=== PATIENT | female | born 1975 | race Caucasian/White ===

== ENCOUNTER 2025-07-12 11:31 | Emergency (ER) | payer SELFPAY ==
[2025-07-12 11:32] VITALS: BP 136/100; PULSE 107; RESP 16; TEMP 35.9; O2SAT 100
[2025-07-12 11:33] VITALS: BMI 36.8
--- NOTE | 2025-07-12 12:10 | RAD_ITS ---
PROCEDURE: ANKLE MIN 3 VIEWS 07/12/2025 REASON FOR EXAM: FALL TECHNIQUE: Procedure Code: RADANK Modality: DX Procedure: ANKLE MIN 3 VIEWS Laterality: Left COMPARISON: No FINDINGS: Bones: There is questionable avulsion injury noted at the medial malleolus. Joints: Normal alignment. Mortise appears intact. No effusion. Soft tissues: Soft tissue swelling is noted, worst at the medial malleolus. RAD/Ankle min 3 Views IMPRESSION: Questionable avulsion injury is noted at the medial malleolus. Reading Location: [facility]
--- NOTE | 2025-07-12 12:10 | RAD_ITS ---
PROCEDURE: FOOT MIN 3 VIEWS 07/12/2025 REASON FOR EXAM: FALL TECHNIQUE: Procedure Code: RADFO Modality: DX Procedure: FOOT MIN 3 VIEWS Laterality: Left COMPARISON: None FINDINGS: Bones: No visible fracture. No suspicious bone lesion. Joints: Normal alignment. Soft tissues: Soft tissues are unremarkable. RAD/Foot min 3 Views IMPRESSION: No acute fracture. Reading Location: [facility]
--- NOTE | 2025-07-12 12:11 | EDS_ITS ---
HPI History of Present Illness Chief Complaint: Lower Extremity Injury Narrative Narrative: Patient is a 50-year-old female with no medical history who presents to the emergency department the chief complaint of foot and ankle pain on the left side. She states that she was going down a set of stairs missed the last step twisting her ankle. States that she has significant pain and has not take anything for pain at home coming here to be further evaluated. She states that she did not hit her head she not pass out she denies any blood thinner medications. Patient denies pain anywhere else on her body. PFSH PFSH Medical History no medical history Allergy/AdvReac Type Severity Reaction Status Date / Time No Known Allergies Allergy Verified 07/12/25 11:32 Surgical History no surgical history Social History Smoking Status: Never smoker ROS ROS ED ROS Narrative Neurological: Denies any numbness or tingling Musculoskeletal: Complains of left foot and ankle pain as noted above Skin: Denies any rashes or lesions EXAM Physical Exam Narrative Exam Narrative: General: Patient is lying in bed resting comfortably did not appear to be in acute distress Head: Atraumatic, normocephalic Eyes: PERRL bilaterally, EOMI bilaterally, no conjunctival injection noted Neck: Soft, supple, trachea midline Cardiovascular: Patient tachycardic Musculoskeletal: Patient has tenderness to palpation over the left ankle and left foot all other bony prominences palpated joints taken through full range of motion no pain elicited Extremities: DP pulses +2/4 in the left lower extremity, +5/5 strength noted in the bilateral upper and the right lower extremity, strength limited in the left lower extremity secondary to pain Neurological: Patient following commands that she was at [facility] year is 2024 sensation grossly intact Skin: Warm, dry, intact no rashes or lesions noted Const Vital Signs: 07/12/25 11:32 Temperature 96.7 F L Temperature Source Temporal Pulse Rate 107 H Respiratory Rate 16 Blood Pressure 136/100 H Blood Pressure Mean 112 Pulse Ox 100 Oxygen Delivery Method Room Air MDM MDM MDM Narrative Medical decision making narrative: Patient is a 50-year-old female who presented to the emergency department the chief complaint left foot and ankle pain after missing a the last step. On the differential diagnosis includes but limited to ankle sprain, medial mall's fracture, lateral malleolus fracture. Once workup is obtained and reviewed she will be reevaluated. Patient be given [place] and Zofran. Patient's x-ray reviewed by myself and by radiology of the foot and ankle which showed no acute fracture or dislocation of her foot. Patient's ankle x-ray showed questionable avulsion injury noted to the medial malleolus. I discussed the case with on-call orthopedic surgeon Dr. Short who recommends placing the patient in a walking boot and following up in the outpatient setting. Patient was offered crutches which she states that she already has. She was advised to rotate Tylenol and ibuprofen [id number] for pain control. She is encouraged to return with worsening symptoms or other concerns. All question concerns answered she was discharged home in stable condition Radiography Diagnostic Testing: Clinical Impression(s) from Imaging Studies Ankle X-Ray 07/12/25 12:10 IMPRESSION: Questionable avulsion injury is noted at the medial malleolus. Reading Location: [facility] Foot X-Ray 07/12/25 12:10 IMPRESSION: No acute fracture. Reading Location: [facility] Discharge Plan Triage Chief Complaint: Lower Extremity Injury ED Provider: Guillermo Natarajan Dx/Rx/DC Orders Clinical Impression: Fall, Ankle sprain Primary Care Provider: Julia Steele Referrals: Asif Short DO [Med Staff - Active Staff, [facility]] Julia Steele, PA-C [Primary Care Provider, Medical] Activity Restrictions/Additional Instructions: Follow-up with the orthopedic surgeon you were referred to. Return with worsening symptoms or any other concerns. Rotate Tylenol and ibuprofen [id number] when you do this you can take something every 3 hours for pain max dose of Tylenol and 24 hours 4000 mg max dose of ibuprofen in 24 hours 3200 mg. Ice, elevate. Ambulate as tolerated. Print Language: Macedonian Disposition Disposition: Home, Self Care
[2025-07-12] MEDS: HYDROcodone Bitartrate/Apap 5/325 Tablet PO (12:14)
--- OUTSIDE RECORDS SUMMARY | 2025-07-12 13:21 | XMS RPT_ITS | CCD ---
Author Organization [facility] Care Team Providers Care Toy Department Manager Name Role Phone OMAIRA, DR FEDE Mathews Attending Unavaila ble OMAIRA, DR FEDE Mathews Primary Care Unavaila ble OMAIRA, DR FEDE Mathews Admitting Unavaila ble INDU CUENCA MD Consulting Unavailable PROVIDER, UNKNOWN Consulting Unavailable PROVIDER, UNKNOWN Consulting Unavailable AMADO HEARD MD Primary Care Unavailable AMADO HEARD MD Admitting Unavailable INDU CUENCA MD Consulting Unavailable AMADO HEARD MD Attending Unavailable PROVIDER, UNKNOWN Consulting Unavailable PROVIDER, UNKNOWN Consulting Unavailable Results Test Name Value Interpretation Reference Range Facility EMERGENCY REPORTon 1 EMERGENCY REPORT [facility] EMERGENCY ROOM REPORT NAME ACCOUNT SEX AGE ADMIT DISCHARGE PT MED. RECORD# NUMBER DATE DATE TYPE ALAN MCKINNON [id number] F [id number] 03/13/21 03/15/21 1 A [id number] ROOM: [facility] DATE OF : 1975 DICTATING PHYSICIAN: Bong Wang CHIEF COMPLAINT/HISTORY OF PRESENT ILLNESS: This is a young lady who came to the emergency room with shortness of breath. She lives at home in a reasonable good house. She was recently diagnosed as COVID. She states she has had fevers and she has been coughing and she feels like she is short of breath when she walks around. She came here by private vehicle. She says that she gets dizzy when she feels short of breath. She decided to come to the emergency room for evaluation. She was on Zithromax after being previously diagnosed. She is not a smoker. She comes from home. She states she is not a diabetic. No history of cardiac disease. In general, she enjoys good health. She is not on oxygen. She does not have a history of asthma or chronic lung disorders. She states she has not had any chest pain that is midsternal with radiation to her arms or back. She has not had any vomiting or diarrhea, abdominal pain. She states sometimes she will feel nauseated. Sometimes she will have loose stool, but no urinary complaints and she is seen in room number 6. PHYSICAL EXAMINATION: VITAL SIGNS: She has 98.2 temperature, 119 pulse, 22 respirations, 134/83 blood pressure. She is saturating 85% saturated. On oxygen her saturation is improved to 92 to 93. Her lungs did not have end-expiratory wheezing but on inspiration she had rhonchitic sounds bilaterally prompting a CT. She denied any history of blood clots. She had no retractions. Heart rate and rhythm are regular. PMI is left chest. Good radial and dorsalis pedis pulses. There are no peripheral edema. Abdomen is soft. She was overweight, no offence, nontender. She did not have prolonged expiratory phase. DIAGNOSTIC DATA: A 6.2 white count, 14 and 42 H&H. Her D-dimer was slightly elevated at 262. Potassium slightly low at 3.2. Calcium was slightly low at 8.1. Glucose slightly elevated at 155. CRP was somewhat elevated at 520. EMERGENCY DEPARTMENT COURSE AND TREATMENT: With oxygen and with medications provided in the emergency room, that is fluids and steroids, and reassurance, she felt improved. Her saturations still remained on the low side when the oxygen was removed so she was kept on 4 L of oxygen here and labs were obtained. The lab results were not so bad. All these things are being done and she is feeling some better. She is talking easier. She was given ceftriaxone, dexamethasone, here in the emergency room and she also had the CTA chest. She had fluids. Her CTA of her chest demonstrated no pulmonary embolism, but compared to a CT she had on the 06 of March, she had bilateral multiple infiltrates and new dependent consolidations. Page 1 of 2 ALAN MCKINNON Emergency Room Report ALAN MCKINNON : 1975 DIAGNOSIS/PLAN/DISPO SITION: She has COVID pneumonia hence further she was admitted to Dr. Montano's service. Dictated By: Bong Wang DO 03/15/21 21:02 JOB #: [id number] Transcribed By: laura 03/16/21 14:51 Electronically signed by: E-SIGN BONG WANG DO 03/22/21 18:58 Page 2 of 2 PRATIBHA ALAN A Emergency Room Report Normal [facility] Culture, Blood (WB)on 2020 CUB No growth in 5 days. Normal [facility] Comment on above: Performed By: #### M 200.1000 #### [facility] [address] [place], [address] APTT - DAILYon 03-15-2021 aPTT Coag (Bld) [Time] 30.3 s Normal 25.4 - 38.4 [facility] Comment on above: Performed By: #### 2 00602 #### [facility],[address] [place] [address] 02174 C-REACTIVE PROTEIN - DAILYon 03-15-2021 CRP 2.00 mg/dl High 0.00 - 0.90 [facility] Comment on above: Performed By: #### 2 02192 #### [facility],[address] [place] [address] 44207 CBC DAILYon 03-15-2021 Baso # 0.00 x10EE3/UL Normal 0.00 - 0.10 [facility] Comment on above: Performed By: #### 2 67993 #### [facility],[address] [place] [address] 78106 Basophils/100 WBC (Bld) 0.0 % Normal 0.0 - 2.0 [facility] Comment on above: Performed By: #### 2 13649 #### [facility],[address] [place] [address] 13206 EO # 0.00 x10EE3/UL Normal 0.00 - 0.50 [facility] Comment on above: Performed By: #### 2 41438 #### [facility],[address] [place] [address] 56769 Eosinophils/100 WBC (Bld) 0.0 % Normal 0.0 - 7.0 [facility] Comment on above: Performed By: #### 2 40256 #### [facility],[address] [place] [address] 33543 Erythrocyte distribution width (RBC) [Ratio] 13.7 % Normal 12.0 - 15.6 [facility] Comment on above: Performed By: #### 2 50437 #### [facility],[address] [place], [place] [id number] Hematocrit (Bld) [Volume fraction] 38.8 % Normal 34.0 - 46.0 [facility] Comment on above: Performed By: #### 2 03803 #### [facility],[address] [place] [address] Hemoglobin (Bld) [Mass/Vol] 12.5 g/dL Normal 12.0 - 16.0 [facility] Comment on above: Performed By: #### 2 32015 #### [facility],[address] [place] [address] Lymph # 1.70 x10EE3/UL Normal 0.80 - 2.80 [facility] Comment on above: Performed By: #### 2 40675 #### [facility],[address] [place], [place] [id number] Lymphocytes/100 WBC (Bld) 14.6 % Low 20.0 - 45.0 [facility] Comment on above: Performed By: #### 2 14951 #### [facility],[address] [place], [place] [id number] MANUAL DIFF N/A Normal [facility] Comment on above: Performed By: #### 2 47794 #### [facility],[address] [place] [address] 41463 MCH (RBC) [Entitic mass] 29 pg Normal 27 - 33 [facility] Comment on above: Performed By: #### 2 87464 #### [facility],[address] [place] [address] 85792 MCHC 32 X10 3 Normal 32 - 36 [facility] Comment on above: Performed By: #### 2 80589 #### [facility],[address] [place] [address] 20816 MCV (RBC) [Entitic vol] 90 fL Normal 80 - 99 [facility] Comment on above: Performed By: #### 2 30856 #### [facility],[address] [place] [address] 45686 [place] # 0.70 x10EE3/UL Normal 0.20 - 1.00 [facility] Comment on above: Performed By: #### 2 99116 #### [facility],[address] [place] [address] 14783 MONOS % 6.5 % Normal 0.0 - 10.0 [facility] Comment on above: Performed By: #### 2 44776 #### [facility],[address] [place] [address] 75942 Morphology Franky (Bld) [Interp] N/A Normal [facility] Comment on above: Result Comment: {CD] Performed By: #### 2 43792 #### [facility],[address] [place] [address] 71874 Neut # 9.00 x10EE3/UL High 1.50 - 7.10 [facility] Comment on above: Performed By: #### 2 12206 #### [facility],[address] [place] [address] 29482 Neutrophils/100 WBC (Bld) 78.9 % High 46.0 - 76.0 [facility] Comment on above: Performed By: #### 2 27309 #### [facility],[address] [place] [address] 36883 PLATELET 193 x10EE3/UL Normal 150 - 450 [facility] Comment on above: Performed By: #### 2 15640 #### [facility],[address] [place] [address] 96168 Platelet mean volume (Bld) [Entitic vol] 10.2 fL Normal 6.6 - 10.5 [facility] Comment on above: Result Comment: AUTO MATED DIFFERENTIAL Performed By: #### 2 48806 #### [facility],[address] [place] [address] 82652 RBC 4.33 x 10EE6/UL Normal 4.10 - 5.30 [facility] Comment on above: Performed By: #### 2 70786 #### [facility],[address] [place] [address] 89322 WBC 11.5 x 10EE3/UL High 4.5 - 10.8 [facility] Comment on above: Performed By: #### 2 61063 #### [facility],[address] [place] [address] 00850 CMP with eGFR - DAILYon 02-15 AGE 45 years Normal [facility] Comment on above: Performed By: #### 2 87697 #### [facility],[address] [place] [address] 58676 Albumin [Mass/Vol] 2.9 g/dL Low 3.4 - 5.0 [facility] Comment on above: Performed By: #### 2 87697 #### [facility],[address] [place] [address] 28204 Albumin/Globulin [Mass ratio] 0.8 {ratio} Low 0.9 - 1.6 [facility] Comment on above: Performed By: #### 2 45568 #### [facility],[address] [place] [address] 42591 ALK PHOS 51 U/L Normal 46 - 116 [facility] Comment on above: Performed By: #### 2 69534 #### [facility],[address] [place] [address] 30328 ALT [Catalytic activity/Vol] 14 U/L Normal 14 - 59 [facility] Comment on above: Performed By: #### 2 34145 #### [facility],[address] [place] [address] Anion gap [Moles/Vol] 15 mmol/L Normal 10 - 20 [facility] Comment on above: Performed By: #### 2 36652 #### [facility],[address] [place] [address] AST [Catalytic activity/Vol] 14 U/L Normal 13 - 39 [facility] Comment on above: Performed By: #### 2 69927 #### [facility],[address] [place] [address] B/C RATIO 19 ratio Normal 0 - 30 [facility] Comment on above: Performed By: #### 2 02490 #### [facility],[address] [place] [address] Bilirubin [Mass/Vol] 0.3 mg/dL Normal 0.2 - 1.0 [facility] Comment on above: Performed By: #### 2 78044 #### [facility],[address] [place] [address] Calcium [Mass/Vol] 8.3 mg/dL Low 8.5 - 10.1 [facility] Comment on above: Performed By: #### 2 36971 #### [facility],[address] [place] [address] Chloride [Moles/Vol] 108 mmol/L High 98 - 107 [facility] Comment on above: Performed By: #### 2 35185 #### [facility],[address] [place] [address] CMP with eGFR - DAILY Normal [facility] Comment on above: Result Comment: COMP REHENSIVE METABOLIC PANEL Performed By: #### 2 04136 #### [facility],[address] [place], [place] [id number] CO2 [Moles/Vol] 23.6 mmol/L Normal 21.0 - 32.0 [facility] Comment on above: Performed By: #### 2 40167 #### [facility],[address] [place], [place] [id number] Creatinine [Mass/Vol] 0.58 mg/dL Normal 0.55 - 1.02 [facility] Comment on above: Performed By: #### 2 47250 #### [facility],[address] [place], [place] [id number] GFR/1.73 sq M.predicted among non-blacks MDRD (S/P/Bld) [Vol rate/Area] mL/min/{1.73_m2} Normal 60 - 999 [facility] Comment on above: Performed By: #### 2 79125 #### [facility],[address] [place] [address] Result Comment: ACCO RDING TO THE NATIONAL KIDNEY DISEASE EDUCATION PROGRAM(NKDE), A NORMAL eGFR IS A VALUE GREATER THAN OR EQUAL TO 60 ML/MIN/1.73 SQ METERS. CHRONIC KIDNEY DISEASE: <60mL/MIN/1.73 SQ METERS KIDNEY FAILURE: <15mL/MIN/1.73 SQ METERS Globulin (S) [Mass/Vol] 3.8 g/dL Normal 1.5 - 3.8 [facility] Comment on above: Performed By: #### 2 59158 #### [facility],[address] [place] [address] Glucose [Mass/Vol] 133 mg/dL High 74 - 106 [facility] Comment on above: Performed By: #### 2 73332 #### [facility],[address] [place] [address] 36118 Potassium [Moles/Vol] 3.7 mmol/L Normal 3.5 - 5.1 [facility] Comment on above: Performed By: #### 2 74208 #### [facility],[address] [place] [address] 63867 Protein [Mass/Vol] 6.7 g/dL Normal 6.4 - 8.2 [facility] Comment on above: Performed By: #### 2 50314 #### [place] [id number] Sodium [Moles/Vol] 143 mmol/L Normal 136 - 145 [facility] Comment on above: Performed By: #### 2 17255 #### [facility],[address] [place] [address] 06144 Urea nitrogen [Mass/Vol] 11 mg/dL Normal 7 - 18 [facility] Comment on above: Performed By: #### 2 92267 #### [facility],[address] [place] [address] 72413 CPK - DAILYon 03-15-2021 CPK 61 U/L Normal 26 - 192 [facility] Comment on above: Performed By: #### 2 76628 #### [facility],[address] [place] [address] 42083 D-DIMER, QUANTITATIVE - MORENITA Yon 03-15-2021 D-DIMER QUANT 218 ng/ml Normal 0 - 230 [facility] Comment on above: Performed By: #### 2 03724 #### [facility],[address] [place] [address] 57188 D-DIMER, QUANTITATIVE - DAILY Normal [facility] Comment on above: Result Comment: KAILASH T D-DIMER Performed By: #### 2 48720 #### [facility],[address] [place] [address] 02510 LDH - DAILYon 03-15-2021 LDH 204 U/L Normal 81 - 234 [facility] Comment on above: Performed By: #### 2 66915 #### [facility],[address] [place] [address] 93174 PT/INR DAILY PATIENT ON COUM ADINon 03-15-2021 INR Coag (PPP) [Relative time] 1.1 {INR} Normal 0.8 - 1.2 [facility] Comment on above: Result Comment: T HE HEMOSIL THROMBOPLASTIN REAGENT USED IN THE PROTHROMBIN TIME TEST INTERACTS WITH THE DRUG CUBICIN (DAPTOMYCIN) AND WILL RESULT IN FALSELY ELEVATED PT / INR RESULTS. INR INTERPRETATION INR INDICATION PREVENTION AND TREATMENT OF THROMBOEMBOLISM ASSOCIATED WITH: 2.0 - 3.0 ATRIAL FIBRILLATION, BIOPROSTHETIC HEART VALVES, PULMONARY EMBOLISM, VENOUS THROMBOSIS, SYSTEMIC EMBOLISM POST MYOCARDIAL INFARCTION 2.5 - 3.5 MECHANICAL HEART VALVES Performed By: #### 2 37938 #### [facility],[address] [place] [address] 21656 PT-COUMADIN 12.6 sec Normal 9.3 - 14.1 [facility] Comment on above: Performed By: #### 2 48802 #### [facility],[address] [place], [place] [id number] TROPONIN I, HIGH SENSITIVITY - DAILYon 03-15-2021 HS TROPONIN 8.9 pg/mL Normal 0.0 - 51.4 [facility] Comment on above: Performed By: #### 2 13088 #### [address] [address] APTTon 03-14-2021 aPTT Coag (Bld) [Time] 33.0 s Normal 25.4 - 38.4 [facility] Comment on above: Performed By: #### 2 35168 #### [facility],[address] [place] [address] 36687 APTT - DAILYon 03-14-2021 aPTT Coag (Bld) [Time] 32.1 s Normal 25.4 - 38.4 [facility] Comment on above: Performed By: #### 2 20094 #### [facility],[address] [place] [address] 36301 C-REACTIVE PROTEINon 021 CRP 5.20 mg/dl High 0.00 - 0.90 [facility] Comment on above: Performed By: #### 2 34692 #### [facility],[address] [place] [address] 25370 C-REACTIVE PROTEIN - DAILYon 03-14-2021 CRP 4.60 mg/dl High 0.00 - 0.90 [facility] Comment on above: Performed By: #### 2 26723 #### [facility],[address] [place] [address] 83927 CBC DAILYon 03-14-2021 Baso # 0.00 x10EE3/UL Normal 0.00 - 0.10 [facility] Comment on above: Performed By: #### 2 65246 #### [facility],[address] [place], [place] [id number] Basophils/100 WBC (Bld) 0.1 % Normal 0.0 - 2.0 [facility] Comment on above: Performed By: #### 2 05189 #### [facility],[address] [place] [address] 00617 EO # 0.00 x10EE3/UL Normal 0.00 - 0.50 [facility] Comment on above: Performed By: #### 2 65339 #### [place] [id number] Eosinophils/100 WBC (Bld) 0.0 % Normal 0.0 - 7.0 [facility] Comment on above: Performed By: #### 2 64412 #### [place] [address] Erythrocyte distribution width (RBC) [Ratio] 13.5 % Normal 12.0 - 15.6 [facility] Comment on above: Performed By: #### 2 09700 #### [place] [address] Hematocrit (Bld) [Volume fraction] 38.7 % Normal 34.0 - 46.0 [facility] Comment on above: Performed By: #### 2 96751 #### [address] [address] Hemoglobin (Bld) [Mass/Vol] 13.0 g/dL Normal 12.0 - 16.0 [facility] Comment on above: Performed By: #### 2 24518 #### [place] [id number] Lymph # 0.90 x10EE3/UL Normal 0.80 - 2.80 [facility] Comment on above: Performed By: #### 2 00458 #### [facility],[address] [place] [address] Lymphocytes/100 WBC (Bld) 34.8 % Normal 20.0 - 45.0 [facility] Comment on above: Performed By: #### 2 98108 #### [facility],[address] [place] [address] MANUAL DIFF N/A Normal [facility] Comment on above: Performed By: #### 2 37540 #### [facility],[address] [place] [address] MCH (RBC) [Entitic mass] 30 pg Normal 27 - 33 [facility] Comment on above: Performed By: #### 2 52140 #### [facility],[address] [place] [address] MCHC 34 X10 3 Normal 32 - 36 [facility] Comment on above: Performed By: #### 2 29993 #### [facility],[address] [place], [place] [id number] MCV (RBC) [Entitic vol] 89 fL Normal 80 - 99 [facility] Comment on above: Performed By: #### 2 17434 #### [facility],[address] [place] [address] [place] # 0.10 x10EE3/UL Low 0.20 - 1.00 [facility] Comment on above: Performed By: #### 2 02666 #### [facility],[address] [place], [place] [id number] MONOS % 5.5 % Normal 0.0 - 10.0 [facility] Comment on above: Performed By: #### 2 09637 #### [facility],[address] [place], [place] [id number] Morphology Franky (Bld) [Interp] SEE BELOW Normal [facility] Comment on above: Performed By: #### 2 47236 #### [facility],[address] [place] [address] 24687 Neut # 1.50 x10EE3/UL Normal 1.50 - 7.10 [facility] Comment on above: Performed By: #### 2 77662 #### [facility],[address] [place] [address] 38163 Neutrophils/100 WBC (Bld) 59.6 % Normal 46.0 - 76.0 [facility] Comment on above: Performed By: #### 2 21106 #### [facility],[address] [place] [address] 00176 PLATELET 171 x10EE3/UL Normal 150 - 450 [facility] Comment on above: Performed By: #### 2 28461 #### [facility],[address] [place] [address] 29726 Platelet mean volume (Bld) [Entitic vol] 10.3 fL Normal 6.6 - 10.5 [facility] Comment on above: Result Comment: AUTO MATED DIFFERENTIAL Performed By: #### 2 11402 #### [facility],[address] [place] [address] 61036 PLT EST NORMAL Normal [facility] Comment on above: Performed By: #### 2 00377 #### [facility],[address] [place] [address] 21548 RBC 4.34 x 10EE6/UL Normal 4.10 - 5.30 [facility] Comment on above: Performed By: #### 2 78207 #### [facility],[address] [place] [address] 81537 WBC 2.6 x 10EE3/UL Low 4.5 - 10.8 [facility] Comment on above: Performed By: #### 2 90459 #### [facility],[address] [place] [address] 66612 Other OCC GIANT PLATELETS Normal [facility] Comment on above: Result Comment: {CD] Performed By: #### 2 95546 #### [facility],[address] [place] [address] 82350 CMP with eGFR - DAILYon 02-15 AGE 45 years Normal [facility] Comment on above: Performed By: #### 2 25044 #### [facility],[address] [place] [address] 18907 Albumin [Mass/Vol] 3.0 g/dL Low 3.4 - 5.0 [facility] Comment on above: Performed By: #### 2 35889 #### [facility],[address] [place] [address] 68027 Albumin/Globulin [Mass ratio] 0.8 {ratio} Low 0.9 - 1.6 [facility] Comment on above: Performed By: #### 2 23843 #### [facility],[address] [place] [address] 76151 ALK PHOS 54 U/L Normal 46 - 116 [facility] Comment on above: Performed By: #### 2 65310 #### [facility],[address] [place] [address] 93591 ALT [Catalytic activity/Vol] 17 U/L Normal 14 - 59 [facility] Comment on above: Performed By: #### 2 15526 #### [facility],[address] [place] [address] 00766 Anion gap [Moles/Vol] 15 mmol/L Normal 10 - 20 [facility] Comment on above: Performed By: #### 2 40777 #### [facility],[address] [place] [address] 56392 AST [Catalytic activity/Vol] 15 U/L Normal 13 - 39 [facility] Comment on above: Performed By: #### 2 85296 #### [facility],[address] [place] [address] 79651 B/C RATIO 11 ratio Normal 0 - 30 [facility] Comment on above: Performed By: #### 2 51635 #### [facility],[address] [place] [address] 29663 Bilirubin [Mass/Vol] 0.3 mg/dL Normal 0.2 - 1.0 [facility] Comment on above: Performed By: #### 2 45932 #### [facility],[address] [place] [address] 46884 Calcium [Mass/Vol] 8.1 mg/dL Low 8.5 - 10.1 [facility] Comment on above: Performed By: #### 2 26497 #### [facility],[address] [place] [address] 61611 Chloride [Moles/Vol] 106 mmol/L Normal 98 - 107 [facility] Comment on above: Performed By: #### 2 86480 #### [facility],[address] [place] [address] 79433 CMP with eGFR - DAILY Normal [facility] Comment on above: Result Comment: COMP REHENSIVE METABOLIC PANEL Performed By: #### 2 60564 #### [facility],[address] [place] [address] 09582 CO2 [Moles/Vol] 23.8 mmol/L Normal 21.0 - 32.0 [facility] Comment on above: Performed By: #### 2 64168 #### [facility],[address] [place] [address] 01746 Creatinine [Mass/Vol] 0.61 mg/dL Normal 0.55 - 1.02 [facility] Comment on above: Performed By: #### 2 08606 #### [facility],[address] [place] [address] 91890 GFR/1.73 sq M.predicted among non-blacks MDRD (S/P/Bld) [Vol rate/Area] mL/min/{1.73_m2} Normal 60 - 999 [facility] Comment on above: Performed By: #### 2 30328 #### [facility],[address] [place], [place] [id number] Result Comment: ACCO RDING TO THE NATIONAL KIDNEY DISEASE EDUCATION PROGRAM(NKDE), A NORMAL eGFR IS A VALUE GREATER THAN OR EQUAL TO 60 ML/MIN/1.73 SQ METERS. CHRONIC KIDNEY DISEASE: <60mL/MIN/1.73 SQ METERS KIDNEY FAILURE: <15mL/MIN/1.73 SQ METERS Globulin (S) [Mass/Vol] 4.0 g/dL High 1.5 - 3.8 [facility] Comment on above: Performed By: #### 2 31772 #### [facility],[address] [place] [address] Glucose [Mass/Vol] 166 mg/dL High 74 - 106 [facility] Comment on above: Performed By: #### 2 30906 #### [facility],[address] [place] [address] 32945 Potassium [Moles/Vol] 4.2 mmol/L Normal 3.5 - 5.1 [facility] Comment on above: Performed By: #### 2 23388 #### [facility],[address] [place] [address] 47971 Protein [Mass/Vol] 7.0 g/dL Normal 6.4 - 8.2 [facility] Comment on above: Performed By: #### 2 10486 #### [facility],[address] [place] [address] 51467 Sodium [Moles/Vol] 141 mmol/L Normal 136 - 145 [facility] Comment on above: Performed By: #### 2 59654 #### [facility],[address] [place] [address] 76854 Urea nitrogen [Mass/Vol] 7 mg/dL Normal 7 - 18 [facility] Comment on above: Performed By: #### 2 64416 #### [facility],[address] [place] [address] 26213 CPK - DAILYon 03-14-2021 CPK 68 U/L Normal 26 - 192 [facility] Comment on above: Performed By: #### 2 76439 #### [facility],[address] [facility] [address] [address] CHEST (PE PROTOCOL)on CT CHEST (PE PROTOCOL) [address] [address] Patient: ALAN MCKINNON Phone#: : 1975 Age: 45 Gender: F Pt. Type: ER Account: [id number] Location: [facility] Ordering: DR. BONG WANG Exam Date: 03/13/2021/21:56 Family Phys: Charge Code: [id number] Physician: Bacon Order #: [id number] DLP Dose#: 41.90 PROCEDURE: CT CHEST WITH CONTRAST FOR PE COMPARISON: [facility], CT, CHEST PE W CON, 03/06/2021, 17:45. INDICATIONS: Shortness of breath. TECHNIQUE: After obtaining the patient's consent, CT images were obtained with non-ionic intravenous contrast material. Multi-planar images were created to optimize visualization of vascular anatomy with MPR/MIPS and 3D imaging. All CT scans at this facility use dose modulation, iterative reconstruction, and/or weight based dosing when appropriate to reduce radiation dose to as low as reasonably achievable. IV CONTRAST: Omnipaque 350,100ml TOTAL DOSE: 41.90 CTDIvol(mGy) FINDINGS: VASCULATURE: Normal. No visible pulmonary arterial thrombus or attenuation. AORTA: No aortic aneurysm LUNGS: Interval development of new multifocal ground-glass infiltrates, increased from prior. There are dependent consolidation with air bronchograms. KELLY: Normal. No mass or adenopathy. MEDIASTINUM: Normal. No mass or adenopathy. CARDIAC: Cardiomegaly PLEURA: Normal. No mass or effusion. CHEST WALL: Normal. No mass or axillary adenopathy. LIMITED ABDOMEN: Normal. Limited images of the upper abdomen are unremarkable. BONES: Normal. No bony lesion or fracture. OTHER: Negative. CONCLUSION: 1. No pulmonary embolism. Continued Report - Page 2 of 2 Patient: ALAN MCKINNON Phone#: : 1975 Age: 45 Gender: F Pt. Type: ER Account: [id number] Location: 052 Ordering: DR. BONG WANG Exam Date: 03/13/2021/21:56 Family Phys: Charge Code: [id number] Physician: Bacon Order #: [id number] DLP Dose#: [id number] 2. Worsening/increasing bilateral multifocal infiltrates. Interval development of new dependent consolidations. Findings most consistent with worsening of reported COVID-19 pneumonia. Dictated by: Krista Galaviz MD on 03/13/2021 at 22:23 Approved by: Krista Galaviz MD on 03/13/2021 at 22:29 Normal [facility] D-DIMER, QUANTITATIVEon 08- 0-2020 D-DIMER QUANT 262 ng/ml High 0 - 230 [facility] Comment on above: Performed By: #### 2 72788 #### [facility],[address] [place] [address] 03622 D-DIMER, QUANTITATIVE Normal [facility] Comment on above: Result Comment: KAILASH T D-DIMER Performed By: #### 2 62750 #### [facility],[address] [place] [address] 91100 D-DIMER, QUANTITATIVE - MORENITA Yon 03-14-2021 D-DIMER QUANT 219 ng/ml Normal 0 - 230 [facility] Comment on above: Performed By: #### 2 42826 #### [facility],[address] [place] [address] 45919 D-DIMER, QUANTITATIVE - DAILY Normal [facility] Comment on above: Result Comment: KAILASH T D-DIMER Performed By: #### 2 40228 #### [facility],[address] [place] [address] 17823 LDH - DAILYon 03-14-2021 LDH 209 U/L Normal 81 - 234 [facility] Comment on above: Performed By: #### 2 35042 #### [facility],[address] [place] [address] 04537 MAGNESIUMon 08-30-2021 Magnesium [Mass/Vol] 2.1 mg/dL Normal 1.8 - 2.4 [facility] Comment on above: Performed By: #### 2 17742 #### [facility],[address] [place], [place] [id number] NT-proBNPon 03-14-2021 Natriuretic peptide B (Bld) [Mass/Vol] 18 pg/mL Normal 0 - 125 [facility] Comment on above: Performed By: #### 2 89720 #### [facility],[address] [place], [place] [address] PROTHROMBIN TIME AND INRon 0 03-14-2021 INR Coag (PPP) [Relative time] 1.1 {INR} Normal 0.8 - 1.2 [facility] Comment on above: Result Comment: T HE HEMOSIL THROMBOPLASTIN REAGENT USED IN THE PROTHROMBIN TIME TEST INTERACTS WITH THE DRUG CUBICIN (DAPTOMYCIN) AND WILL RESULT IN FALSELY ELEVATED PT / INR RESULTS INR INTERPRETATION INR INDICATION PREVENTION AND TREATMENT OF THROMBOEMBOLISM ASSOCIATED WITH: 2.0 - 3.0 ATRIAL FIBRILLATION, BIOPROSTHETIC HEART VALVES, PULMONARY EMBOLISM, VENOUS THROMBOSIS, SYSTEMIC EMBOLISM POST MYOCARDIAL INFARCTION 2.5 - 3.5 MECHANICAL HEART VALVES Performed By: #### 2 90845 #### [facility],[address] [place], [place] [id number] PROTHROMBIN TIME AND INR Normal [facility] Comment on above: Result Comment: PROT HROMBIN TIME AND INR Performed By: #### 2 28601 #### [facility],[address] [place], [place] [address] PT-COUMADIN 13.0 sec Normal 9.3 - 14.1 [facility] Comment on above: Performed By: #### 2 89254 #### [address] [address] PT/INR DAILY PATIENT ON COUM ADINon 03-14-2021 INR Coag (PPP) [Relative time] 1.2 {INR} Normal 0.8 - 1.2 [facility] Comment on above: Result Comment: T HE HEMOSIL THROMBOPLASTIN REAGENT USED IN THE PROTHROMBIN TIME TEST INTERACTS WITH THE DRUG CUBICIN (DAPTOMYCIN) AND WILL RESULT IN FALSELY ELEVATED PT / INR RESULTS. INR INTERPRETATION INR INDICATION PREVENTION AND TREATMENT OF THROMBOEMBOLISM ASSOCIATED WITH: 2.0 - 3.0 ATRIAL FIBRILLATION, BIOPROSTHETIC HEART VALVES, PULMONARY EMBOLISM, VENOUS THROMBOSIS, SYSTEMIC EMBOLISM POST MYOCARDIAL INFARCTION 2.5 - 3.5 MECHANICAL HEART VALVES Performed By: #### 2 66468 #### [facility],[address] [place] [address] 12227 PT-COUMADIN 13.4 sec Normal 9.3 - 14.1 [facility] Comment on above: Performed By: #### 2 97580 #### [facility],[address] [place] [address] 43446 TROPONIN I, HIGH SENSITIVITY on 03-14-2021 HS TROPONIN 11.1 pg/mL Normal 0.0 - 51.4 [facility] Comment on above: Performed By: #### 2 09699 #### [facility],[address] [place] [address] 32089 TROPONIN I, HIGH SENSITIVITY - DAILYon 03-14-2021 HS TROPONIN 9.5 pg/mL Normal 0.0 - 51.4 [facility] Comment on above: Performed By: #### 2 29991 #### [address] [address] CBC + DIFFon 03-13-2021 Baso # 0.00 x10EE3/UL Normal 0.00 - 0.10 [facility] Comment on above: Performed By: #### 2 12905 #### [address] [address] Basophils/100 WBC (Bld) 0.3 % Normal 0.0 - 2.0 [facility] Comment on above: Performed By: #### 2 69291 #### [facility],[address] [place] [address] 91807 CBC + DIFF Normal [facility] Comment on above: Result Comment: CBC- COMPLETE BLOOD COUNT Performed By: #### 2 44412 #### [place] [address] EO # 0.00 x10EE3/UL Normal 0.00 - 0.50 [facility] Comment on above: Performed By: #### 2 08174 #### [place] [address] Eosinophils/100 WBC (Bld) 0.0 % Normal 0.0 - 7.0 [facility] Comment on above: Performed By: #### 2 01955 #### [place] [address] Erythrocyte distribution width (RBC) [Ratio] 13.7 % Normal 12.0 - 15.6 [facility] Comment on above: Performed By: #### 2 57405 #### [place] [address] Hematocrit (Bld) [Volume fraction] 42.4 % Normal 34.0 - 46.0 [facility] Comment on above: Performed By: #### 2 08995 #### [place] [address] Hemoglobin (Bld) [Mass/Vol] 14.2 g/dL Normal 12.0 - 16.0 [facility] Comment on above: Performed By: #### 2 41750 #### [place] [id number] Lymph # 3.10 x10EE3/UL High 0.80 - 2.80 [facility] Comment on above: Performed By: #### 2 45717 #### [place] [address] Lymphocytes/100 WBC (Bld) 49.2 % High 20.0 - 45.0 [facility] Comment on above: Performed By: #### 2 58129 #### [facility],[address] [place] [address] MANUAL DIFF N/A Normal [facility] Comment on above: Performed By: #### 2 58491 #### [facility],[address] [place] [address] MCH (RBC) [Entitic mass] 29 pg Normal 27 - 33 [facility] Comment on above: Performed By: #### 2 57793 #### [facility],[address] [place] [address] MCHC 33 X10 3 Normal 32 - 36 [facility] Comment on above: Performed By: #### 2 66333 #### [facility],[address] [place] [address] MCV (RBC) [Entitic vol] 88 fL Normal 80 - 99 [facility] Comment on above: Performed By: #### 2 36334 #### [facility],[address] [place] [address] [place]o # 0.50 x10EE3/UL Normal 0.20 - 1.00 [facility] Comment on above: Performed By: #### 2 20370 #### [facility],[address] [place] [address] MONOS % 7.7 % Normal 0.0 - 10.0 [facility] Comment on above: Performed By: #### 2 21865 #### [facility],[address] [place] [address] Morphology Franky (Bld) [Interp] N/A Normal [facility] Comment on above: Result Comment: {CD] Performed By: #### 2 26046 #### [facility],[address] [place] [address] Neut # 2.70 x10EE3/UL Normal 1.50 - 7.10 [facility] Comment on above: Performed By: #### 2 85094 #### [facility],[address] [place] [address] 65690 Neutrophils/100 WBC (Bld) 42.8 % Low 46.0 - 76.0 [facility] Comment on above: Performed By: #### 2 58045 #### [facility],[address] [place] [address] 84871 PLATELET 172 x10EE3/UL Normal 150 - 450 [facility] Comment on above: Performed By: #### 2 95310 #### [facility],[address] [place] [address] 86137 Platelet mean volume (Bld) [Entitic vol] 10.6 fL High 6.6 - 10.5 [facility] Comment on above: Result Comment: AUTO MATED DIFFERENTIAL Performed By: #### 2 68378 #### [facility],[address] [place] [address] 91982 RBC 4.82 x 10EE6/UL Normal 4.10 - 5.30 [facility] Comment on above: Performed By: #### 2 67044 #### [facility],[address] [place] [address] 49612 WBC 6.4 x 10EE3/UL Normal 4.5 - 10.8 [facility] Comment on above: Performed By: #### 2 54222 #### [facility],[address] [place] [address] 14968 CMP with eGFRon 03-13-2021 AGE 45 years Normal [facility] Comment on above: Performed By: #### 2 32205 #### [facility],[address] [place] [address] 88953 Albumin [Mass/Vol] 3.3 g/dL Low 3.4 - 5.0 [facility] Comment on above: Performed By: #### 2 35297 #### [facility],[address] [place] [address] 19165 Albumin/Globulin [Mass ratio] 0.8 {ratio} Low 0.9 - 1.6 [facility] Comment on above: Performed By: #### 2 24793 #### [facility],[address] [place] [address] 37344 ALK PHOS 58 U/L Normal 46 - 116 [facility] Comment on above: Performed By: #### 2 34158 #### [facility],[address] [place] [address] 67519 ALT [Catalytic activity/Vol] 22 U/L Normal 14 - 59 [facility] Comment on above: Performed By: #### 2 56186 #### [facility],[address] [place] [address] 66586 Anion gap [Moles/Vol] 16 mmol/L Normal 10 - 20 [facility] Comment on above: Performed By: #### 2 37481 #### [facility],[address] [place] [address] 58150 AST [Catalytic activity/Vol] 19 U/L Normal 13 - 39 [facility] Comment on above: Performed By: #### 2 13209 #### [facility],[address] [place] [address] 92601 B/C RATIO 10 ratio Normal 0 - 30 [facility] Comment on above: Performed By: #### 2 24016 #### [facility],[address] [place] [address] 27340 Bilirubin [Mass/Vol] 0.4 mg/dL Normal 0.2 - 1.0 [facility] Comment on above: Performed By: #### 2 75404 #### [facility],[address] [place] [address] 20539 Calcium [Mass/Vol] 8.1 mg/dL Low 8.5 - 10.1 [facility] Comment on above: Performed By: #### 2 32043 #### [facility],[address] [place] [address] 49256 Chloride [Moles/Vol] 99 mmol/L Normal 98 - 107 [facility] Comment on above: Performed By: #### 2 76693 #### [facility],[address] [place] [address] 52982 CMP with eGFR Normal [facility] Comment on above: Result Comment: COMP REHENSIVE METABOLIC PANEL Performed By: #### 2 77117 #### [facility],[address] [place] [address] 40979 CO2 [Moles/Vol] 25.3 mmol/L Normal 21.0 - 32.0 [facility] Comment on above: Performed By: #### 2 52832 #### [facility],[address] [place] [address] Creatinine [Mass/Vol] 0.96 mg/dL Normal 0.55 - 1.02 [facility] Comment on above: Performed By: #### 2 05243 #### [facility],[address] [place] [address] GFR/1.73 sq M.predicted among non-blacks MDRD (S/P/Bld) [Vol rate/Area] mL/min/{1.73_m2} Normal 60 - 999 [facility] Comment on above: Performed By: #### 2 93956 #### [facility],[address] [place] [address] Result Comment: ACCO RDING TO THE NATIONAL KIDNEY DISEASE EDUCATION PROGRAM(NKDE), A NORMAL eGFR IS A VALUE GREATER THAN OR EQUAL TO 60 ML/MIN/1.73 SQ METERS. CHRONIC KIDNEY DISEASE: <60mL/MIN/1.73 SQ METERS KIDNEY FAILURE: <15mL/MIN/1.73 SQ METERS THIS TEST SHOULD ONLY BE USED FOR PATIENTS 18 YEARS OF AGE AND OLDER. Globulin (S) [Mass/Vol] 4.2 g/dL High 1.5 - 3.8 [facility] Comment on above: Performed By: #### 2 76372 #### [facility],[address] [place], [place] [address] Glucose [Mass/Vol] 155 mg/dL High 74 - 106 [facility] Comment on above: Performed By: #### 2 65200 #### [facility],[address] [place] [address] 83582 Potassium [Moles/Vol] 3.2 mmol/L Low 3.5 - 5.1 [facility] Comment on above: Performed By: #### 2 99072 #### [facility],[address] [place] [address] 74087 Protein [Mass/Vol] 7.5 g/dL Normal 6.4 - 8.2 [facility] Comment on above: Performed By: #### 2 30169 #### [facility],[address] [place] [address] 96337 Sodium [Moles/Vol] 137 mmol/L Normal 136 - 145 [facility] Comment on above: Performed By: #### 2 30221 #### [facility],[address] [place] [address] 73898 Urea nitrogen [Mass/Vol] 10 mg/dL Normal 7 - 18 [facility] Comment on above: Performed By: #### 2 69540 #### [facility],[address] [place] [address] 39856 CULTURE BLOODon 03-13-2021 Microscopic examination of blood, culture CULTURE BLOOD CULTURE BLOOD SET: 2 of 2 24HOUR REPORT NEGATIVE 48HOUR REPORT NEGATIVE 72HOUR REPORT NEGATIVE M I C R O B I O L O G Y R E P O R T FINAL Antimicrobial Susceptibility and Organism Identification Report Specimen Number : [id number] Requested : 03/13/21 Specimen Source : BLOOD Collected : 03/13/21 21:04 [facility] : EMERGENCY ROOM Received : 03/13/21 21:04 Requesting Physician : FÉLIX Patient/Specimen Tests and Comments REFER TO [facility] REPORT Tech : Source : BLOOD ID # : [id number] FINAL Report Date : / / : Collected : 03/13/21 21:04 03/26/21.933.JULIANNAN. 03/26/21.933.JULIANNAN.CO MPLETE 2 of 2 NEGATIVE NEGATIVE NEGATIVE Normal [facility] Comment on above: Performed By: #### 2 82047 #### [facility],[address] [place] [address] Microscopic examination of blood, culture CULTURE BLOOD CULTURE BLOOD SET: 1 of 2 24HOUR REPORT NEGATIVE 48HOUR REPORT NEGATIVE 72HOUR REPORT NEGATIVE M I C R O B I O L O G Y R E P O R T FINAL Antimicrobial Susceptibility and Organism Identification Report Specimen Number : [id number] Requested : 03/13/21 Specimen Source : BLOOD Collected : 03/13/21 20:45 [facility] : EMERGENCY ROOM Received : 03/13/21 20:45 Requesting Physician : FÉLIX Patient/Specimen Tests and Comments REFER TO [facility] REPORT Tech : Source : BLOOD ID # : [id number] FINAL Report Date : / / : Collected : 03/13/21 20:45 03/26/21.34.JLMalcolm. 03/26/2134.KADIE.CO MPLETE 1 of 2 NEGATIVE NEGATIVE NEGATIVE Normal [facility] Comment on above: Performed By: #### 2 85690 #### [facility],[address] [place] [address] EMERGENCY REPORTon 1 EMERGENCY REPORT [facility] EMERGENCY ROOM REPORT NAME ACCOUNT SEX AGE ADMIT DISCHARGE PT MED. RECORD# NUMBER DATE DATE TYPE ALAN MCKINNON [id number] F 45 03/06/21 03/06/21 3 A [id number] ROOM: ER DATE OF : 1975 DICTATING PHYSICIAN: Fede Castano HISTORY OF PRESENT ILLNESS: The patient comes in stating that she has not been feeling well since Sunday. She has had a headache and cough, body aches, and today she could not taste. She did not have a COVID vaccin. She just feels poorly. She presents to the emergency department. She has had nausea. PAST SURGICAL HISTORY: Denies. SOCIAL HISTORY: She does not smoke or drink. REVIEW OF SYSTEMS: Ten systems are reviewed and negative except as mentioned above. PHYSICAL EXAMINATION: The patient is an awake, alert and oriented female in no acute distress. The patient is afebrile. Blood pressure 157/107, pulse 98, respiratory rate 20, pulse ox 94% on room air. Head is normocephalic, atraumatic. Eyes: Pupils are equal, round and reactive to light. Extraocular muscles are intact. Nares are patent. Throat has adequate moisture. Uvula is midline. Neck is supple. No petechiae or rash. Heart: No murmur. S1 equals S2. No S3 or S4 appreciated. Lungs are clear to auscultation bilaterally. No rales, rhonchi or retractions. Abdomen is soft and nontender, nondistended. Skin is warm and dry. DIAGNOSTIC DATA: WBC 6000, H&H 14 and 42. Chemistries are unremarkable. Lactate is normal. CT is unremarkable for pulmonary embolism. EMERGENCY DEPARTMENT COURSE AND TREATMENT: She was given Rocephin I gave her Zithromax. DIAGNOSIS: COVID-19. PLAN/DISPOSITION: She will be prescribed Zithromax and an inhaler. She is discharged in stable condition. Dictated By: Fede Castano DO 03/06/21 19:09 JOB #: [id number] Page 1 of 2 ALAN MCKINNON Emergency Room Report ALAN MCKINNON : 1975 Transcribed By: dasha 03/07/21 10:04 Electronically signed by: JASMEET Castano D.O. 03/13/21 02:15 Page 2 of 2 ALAN MCKINNON Emergency Room Report Normal [facility] LACTATEon 08-29-2021 Lactate [Moles/Vol] 2.0 mmol/L Normal 0.4 - 2.0 [facility] Comment on above: Performed By: #### 2 52747 #### [facility],[address] [place] [address] 71281 CBC + DIFFon 03-06-2021 BANDS 5 % Normal 0 - 5 [facility] Comment on above: Performed By: #### 2 73972 #### [facility],[address] [place] [address] Baso # 0.00 x10EE3/UL Normal 0.00 - 0.10 [facility] Comment on above: Performed By: #### 2 03988 #### [facility],[address] [place] [address] 03978 Basophils/100 WBC (Bld) 0.5 % Normal 0.0 - 2.0 [facility] Comment on above: Performed By: #### 2 96988 #### [facility],[address] [place] [address] 19170 CBC + DIFF Normal [facility] Comment on above: Result Comment: CBC- COMPLETE BLOOD COUNT Performed By: #### 2 68292 #### [facility],[address] [place] [address] 28768 EO # 0.10 x10EE3/UL Normal 0.00 - 0.50 [facility] Comment on above: Performed By: #### 2 80509 #### [facility],[address] [place] [address] 57803 Eosinophils/100 WBC (Bld) 1.2 % Normal 0.0 - 7.0 [facility] Comment on above: Performed By: #### 2 66046 #### [facility],[address] [place] [address] 65739 Erythrocyte distribution width (RBC) [Ratio] 14.0 % Normal 12.0 - 15.6 [facility] Comment on above: Performed By: #### 2 98543 #### [facility],[address] [place] [address] 86957 Hematocrit (Bld) [Volume fraction] 42.3 % Normal 34.0 - 46.0 [facility] Comment on above: Performed By: #### 2 05801 #### [facility],[address] [place] [address] Hemoglobin (Bld) [Mass/Vol] 14.0 g/dL Normal 12.0 - 16.0 [facility] Comment on above: Performed By: #### 2 [id number] #### [facility],[address] [place] [address] Lymph # 1.40 x10EE3/UL Normal 0.80 - 2.80 [facility] Comment on above: Performed By: #### 2 55569 #### [facility],[address] [place], [place] [id number] Lymphocytes/100 WBC (Bld) 20.2 % Normal 20.0 - 45.0 [facility] Comment on above: Performed By: #### 2 78709 #### [facility],[address] [place], [place] [id number] Lymphocytes/100 WBC (Bld) 17 % Low 20 - 40 [facility] Comment on above: Performed By: #### 2 64943 #### [facility],[address] [place] [address] MANUAL DIFF SEE BELOW Normal [facility] Comment on above: Performed By: #### 2 99766 #### [facility],[address] [place], [place] [id number] MCH (RBC) [Entitic mass] 30 pg Normal 27 - 33 [facility] Comment on above: Performed By: #### 2 85947 #### [facility],[address] [place] [address] MCHC 33 X10 3 Normal 32 - 36 [facility] Comment on above: Performed By: #### 2 12270 #### [facility],[address] [place] [address] MCV (RBC) [Entitic vol] 90 fL Normal 80 - 99 [facility] Comment on above: Performed By: #### 2 97839 #### [facility],[address] [place] [address] [place]o # 1.00 x10EE3/UL Normal 0.20 - 1.00 [facility] Comment on above: Performed By: #### 2 10041 #### [facility],[address] [place] [address] MONOS 17 % High 0 - 8 [facility] Comment on above: Performed By: #### 2 77856 #### [facility],[address] [place] [address] MONOS % 13.9 % High 0.0 - 10.0 [facility] Comment on above: Performed By: #### 2 94696 #### [facility],[address] [place] [address] Morphology Franky (Bld) [Interp] REVIEWED Normal [facility] Comment on above: Result Comment: {CD] Performed By: #### 2 19826 #### [facility],[address] [place] [address] Neut # 4.40 x10EE3/UL Normal 1.50 - 7.10 [facility] Comment on above: Performed By: #### 2 42552 #### [facility],[address] [place] [address] Neutrophils/100 WBC (Bld) 64.2 % Normal 46.0 - 76.0 [facility] Comment on above: Performed By: #### 2 87222 #### [facility],[address] [place] [address] PLATELET 199 x10EE3/UL Normal 150 - 450 [facility] Comment on above: Performed By: #### 2 17790 #### [facility],[address] [place] [address] Platelet mean volume (Bld) [Entitic vol] 11.0 fL High 6.6 - 10.5 [facility] Comment on above: Result Comment: AUTO MATED DIFFERENTIAL Performed By: #### 2 66056 #### [facility],[address] [place] [address]6960 RBC 4.71 x 10EE6/UL Normal 4.10 - 5.30 [facility] Comment on above: Performed By: #### 2 00120 #### [facility],[address] [place] [address] 15605 SEGS 61 % Normal 50 - 70 [facility] Comment on above: Performed By: #### 2 43343 #### [facility],[address] [place] [address]69 WBC 6.9 x 10EE3/UL Normal 4.5 - 10.8 [facility] Comment on above: Performed By: #### 2 78368 #### [facility],[address] [place] [address]174 CMP with eGFRon 03-06-2021 AGE 45 years Normal [facility] Comment on above: Performed By: #### 2 88288 #### [facility],[address] [place] [address] 83018 Albumin [Mass/Vol] 3.9 g/dL Normal 3.4 - 5.0 [facility] Comment on above: Performed By: #### 2 41541 #### [facility],[address] [place] [address]603 Albumin/Globulin [Mass ratio] 1.0 {ratio} Normal 0.9 - 1.6 [facility] Comment on above: Performed By: #### 2 21970 #### [facility],[address] [place] [address]62 ALK PHOS 68 U/L Normal 46 - 116 [facility] Comment on above: Performed By: #### 2 47239 #### [facility],[address] [place] [address] 89342 ALT [Catalytic activity/Vol] 21 U/L Normal 14 - 59 [facility] Comment on above: Performed By: #### 2 10136 #### [facility],[address] [place] [address]70 Anion gap [Moles/Vol] 15 mmol/L Normal 10 - 20 [facility] Comment on above: Performed By: #### 2 71382 #### [facility],[address] [place] [address] 16018 AST [Catalytic activity/Vol] 12 U/L Low 13 - 39 [facility] Comment on above: Performed By: #### 2 74899 #### [facility],[address] [place] [address] B/C RATIO 15 ratio Normal 0 - 30 [facility] Comment on above: Performed By: #### 2 66207 #### [facility],[address] [place] [address] 17178 Bilirubin [Mass/Vol] 0.2 mg/dL Normal 0.2 - 1.0 [facility] Comment on above: Performed By: #### 2 20871 #### [facility],[address] [place] [address] 38286 Calcium [Mass/Vol] 8.6 mg/dL Normal 8.5 - 10.1 [facility] Comment on above: Performed By: #### 2 89181 #### [facility],[address] [place] [address] 74227 Chloride [Moles/Vol] 101 mmol/L Normal 98 - 107 [facility] Comment on above: Performed By: #### 2 92393 #### [facility],[address] [place] [address] 07046 CMP with eGFR Normal [facility] Comment on above: Result Comment: COMP REHENSIVE METABOLIC PANEL Performed By: #### 2 01362 #### [facility],[address] [place] [address]7029 CO2 [Moles/Vol] 25.2 mmol/L Normal 21.0 - 32.0 [facility] Comment on above: Performed By: #### 2 15484 #### [facility],[address] [place], [place] [id number] Creatinine [Mass/Vol] 0.93 mg/dL Normal 0.55 - 1.02 [facility] Comment on above: Performed By: #### 2 90571 #### [facility],[address] [place] [address] GFR/1.73 sq M.predicted among non-blacks MDRD (S/P/Bld) [Vol rate/Area] mL/min/{1.73_m2} Normal 60 - 999 [facility] Comment on above: Performed By: #### 2 21652 #### [facility],[address] [place] [address] Result Comment: ACCO RDING TO THE NATIONAL KIDNEY DISEASE EDUCATION PROGRAM(NKDE), A NORMAL eGFR IS A VALUE GREATER THAN OR EQUAL TO 60 ML/MIN/1.73 SQ METERS. CHRONIC KIDNEY DISEASE: <60mL/MIN/1.73 SQ METERS KIDNEY FAILURE: <15mL/MIN/1.73 SQ METERS THIS TEST SHOULD ONLY BE USED FOR PATIENTS 18 YEARS OF AGE AND OLDER. Globulin (S) [Mass/Vol] 4.0 g/dL High 1.5 - 3.8 [facility] Comment on above: Performed By: #### 2 51351 #### [facility],[address] [place] [address]78 Glucose [Mass/Vol] 107 mg/dL High 74 - 106 [facility] Comment on above: Performed By: #### 2 76650 #### [facility],[address] [place] [address] 30131 Potassium [Moles/Vol] 4.0 mmol/L Normal 3.5 - 5.1 [facility] Comment on above: Performed By: #### 2 42899 #### [facility],[address] [place] [address] 56641 Protein [Mass/Vol] 7.9 g/dL Normal 6.4 - 8.2 [facility] Comment on above: Performed By: #### 2 42276 #### [facility],[address] [place], [place] [id number] Sodium [Moles/Vol] 137 mmol/L Normal 136 - 145 [facility] Comment on above: Performed By: #### 2 92124 #### [facility],[address] [place] [address] Urea nitrogen [Mass/Vol] 14 mg/dL Normal 7 - 18 [facility] Comment on above: Performed By: #### 2 58531 #### [facility],[address] [place] [address] CORONAVIRUS (SARS) ANTIGEN T ESTon 03-06-2021 EXTERNAL QC DONE? YES Normal [facility] Comment on above: Performed By: #### 2 22751 #### [facility],[address] [place] [address] INTERNAL CONTROL PASS Normal [facility] Comment on above: Performed By: #### 2 51374 #### [facility],[address] [place], [place] [id number] SARS ANTIGEN Positive Critically abnormal NORMAL: NEGATIVE [facility] Comment on above: Result Comment: { CA LLED TO { READ BACK BY PT AWARE Performed By: #### 2 11113 #### [facility],[address] [place] [address] SEND TO IC? YES Normal [facility] Comment on above: Result Comment: SARS -CoV-2 THIS TEST IS BEING USED UNDER THE FDA EUA PROCEDURE. THIS ASSAY HAS BEEN VALIDATED AT [facility] FOR USE WITH NASAL AND NASOPHARYNGEAL SWAB SPECIMENS. INTERPRETIVE DATA TEST RESULTS SHOULD ALWAYS BE CONSIDERED IN THE CONTEXT OF CLINICAL OBSERVATIONS AND EPIDEMIOLOGICAL DATA IN MAKING FINAL DIAGNOSIS AND PATIENT MANAGEMENT DECISIONS. PATIENT MANAGEMENT SHOULD FOLLOW CURRENT CDC GUIDELINES. THE AMIE SARS ANTIGEN CHERRI DOES NOT DIFFERENTIATE BETWEEN SARS-CoV & SARS-CoV-2. A POSITIVE TEST RESULT INDICATES THE PRESENCE OF SARS-CoV-2 NUCLEOCAPSID PROTEIN ANTIGEN, AND THE PATIENT IS INFECTED WITH THE VIRUS AND PRESUMED TO BE CONTAGIOUS. A NEGATIVE TEST RESULT FOR THIS TEST MEANS THAT SARS-CoV-2 NUCLEOCAPSID PROTEIN ANTIGEN WAS NOT PRESENT IN THE SPECIMEN ABOVE THE LIMIT OF DETECTION. HOWEVER, A NEGATIVE RESULT DOES NOT RULE OUT COVID-19 AND SHOULD NOT BE USED THE SOLE BASIS FOR TREATMENT OR PATIENT MANAGEMENT DECISIONS. A NEGATIVE RESULT DOES NOT EXCLUDE THE POSSIBILITY OF COVID-19. NEGATIVE RESULTS, FROM PATIENTS WITH SYMPTOM ONSET BEYOND FIVE DAYS, SHOULD BE TREATED PRESUMPTIVE AND CONFIRMATION WITH A MOLECULAR ASSAY, IF NECESSARY, FOR PATIENT MANAGEMENT, MAY BE PERFORMED. WHEN DIAGNOSTIC TESTING IS NEGATIVE, THE POSSIBLILTY OF A FALSE NEGATIVE RESULT SHOULD BE CONSIDERED IN THE CONTEXT OF A PATIENT'S RECENT EXPOSURES AND THE PRESENCE OF CLINICAL SIGNS AND SYMPTOMS CONSISTENT WITH COVID-19. THE POSSIBILITY OF A FALSE NEGATIVE RESULT SHOULD ESPECIALLY BE CONSIDERED IF THE PATIENT'S RECENT EXPOSURES OR CLINICAL PRESENTATION INDICATE THAT COVID-19 IS LIKELY, AND DIAGNOSTIC TESTS FOR OTHER CAUSES OF ILLNESS (e.g., OTHER RESPIRATORY ILLNESS) ARE NEGATIVE. IF COVID-19 IS STILL SUSPECTED BASED ON EXPOSURE HISTORY TOGETHER WITH OTHER CLINICAL FINDINGS, RE-TESTING SHOULD BE CONSIDERED BY HEALTHCARE PROVIDERS IN CONSULTATION WITH PUBLIC HEALTH AUTHORITIES. Performed By: #### 2 95891 #### [facility] [place] [address] [address] CHEST (PE PROTOCOL)on CT CHEST (PE PROTOCOL) [place] [address] Patient: ALAN MCKINNON Phone#: : [phone] Age: 45 Gender: F Pt. Type: ER Account: [id number] Location: [facility] Ordering: FEDE CASTANO Exam Date: 03/06/2021/17:45 Family Phys: INDU CUENCA Charge Code: 535997 Physician: Bacon Order #: [id number] DLP Dose#: 9.4 mGy PROCEDURE: CT CHEST WITH CONTRAST FOR PE COMPARISON: None. INDICATIONS: Dyspnea. TECHNIQUE: After obtaining the patient's consent, CT images were obtained with non-ionic intravenous contrast material. Multi-planar images were created to optimize visualization of vascular anatomy with MPR/MIPS and 3D imaging. All CT scans at this facility use dose modulation, iterative reconstruction, and/or weight based dosing when appropriate to reduce radiation dose to as low as reasonably achievable. IV CONTRAST: Omnipaque 350,80ml TOTAL DOSE: 9.4 CTDIvol(mGy) FINDINGS: VASCULATURE: Normal. No visible pulmonary arterial thrombus or attenuation. AORTA: Normal. No aneurysm or dissection. LUNGS: There is dependent vascular congestion. KELLY: Normal. No mass or adenopathy. MEDIASTINUM: Normal. No mass or adenopathy. CARDIAC: Cardiomegaly. PLEURA: Normal. No mass or effusion. CHEST WALL: Normal. No mass or axillary adenopathy. LIMITED ABDOMEN: Normal. Limited images of the upper abdomen are unremarkable. BONES: Normal. No bony lesion or fracture. OTHER: Negative. CONCLUSION: 1. Cardiomegaly. 2. There is no evidence of pulmonary embolus. [place] [address] Patient: ALAN MCKINNON Phone#: : 1975 Age: 45 Gender: F Pt. Type: ER Account: [id number] Location: [facility] Ordering: FEDE CASTANO Exam Date: 03/06/2021/17:45 Family Phys: INDU BANG Charge Code: 462168 Physician: Bacon Order #: [id number] DLP Dose#: 9.4 mGy Dictated by: Holley Matt MD on 03/06/2021 at 23:14 Approved by: Holley Matt MD on 03/06/2021 at 23:17 [facility] CULTURE BLOODon 03-06-2021 Microscopic examination of blood, culture CULTURE BLOOD CULTURE BLOOD SET: 2 of 2 24HOUR REPORT NEGATIVE 48HOUR REPORT NEGATIVE 72HOUR REPORT NEGATIVE M I C R O B I O L O G Y R E P O R T FINAL Antimicrobial Susceptibility and Organism Identification Report Specimen Number : [id number] Requested : 03/06/21 Specimen Source : BLOOD Collected : 03/06/21 17:02 [facility] : EMERGENCY ROOM Received : 03/06/21 17:02 Requesting Physician : OMAIRA Patient/Specimen Tests and Comments Specimen Comments FINAL REPORT: NO GROWTH AT 5 DAYS Tech : Source : BLOOD ID # : [id number] FINAL Report Date : / / : Collected : 03/06/21 17:02 03/12/21.1055.CARLOS. 03/12/21.1055.CARLOS.MARIELLE MPLETE 2 of 2 NEGATIVE NEGATIVE NEGATIVE Normal [facility] Comment on above: Performed By: #### 2 [id number] #### [facility],[address] [place] [address] Microscopic examination of blood, culture CULTURE BLOOD CULTURE BLOOD SET: 1 of 2 24HOUR REPORT NEGATIVE 48HOUR REPORT NEGATIVE 72HOUR REPORT NEGATIVE M I C R O B I O L O G Y R E P O R T FINAL Antimicrobial Susceptibility and Organism Identification Report Specimen Number : [id number] Requested : 03/06/21 Specimen Source : BLOOD Collected : 03/06/21 17:00 [facility] : EMERGENCY ROOM Received : 03/06/21 17:00 Requesting Physician : OMAIRA Patient/Specimen Tests and Comments Specimen Comments FINAL REPORT: NO GROWTH AT 5 DAYS Tech : Source : BLOOD ID # : [id number] FINAL Report Date : / / : Collected : 03/06/21 17:00 03/12/21.1055.KLS. 03/12/21.1055.KLS.CO MPLETE 1 of 2 NEGATIVE NEGATIVE NEGATIVE Normal [facility] Comment on above: Performed By: #### 2 60008 #### [facility],[address] [place] [address] LACTATEon 03-06-2021 Lactate [Moles/Vol] 0.8 mmol/L Normal 0.4 - 2.0 [facility] Comment on above: Performed By: #### 2 83637 #### [facility],[address] [place] [address] Encounters Encounter Date Encounter Type Care Provider Facility Start: 03-13-2021 End: 03-15-2021 Evaluation and management of inpatient AMADO LANG GBARUK [facility] Start: 03-06-2021 End: 03-06-2021 Emergency department patient visit DR FEDE CASTANO [facility] Payers Date Payer Category Payer Unknown [id number] Unknown Summary Purpose Family History No Family History Records FoundNo Family History Records Found Advance Directives No Advanced Directives Records FoundNo Advanced Directives Records Found Additional Source Comments INFORMATION SOURCE (unrecogn ized section and content) DATE CREATED AUTHOR 03/20/2021 [facility] DATE CREATED AUTHOR AUTHOR'S VICKIE CHAPMAN 03/27/2021 [facility] FOR RECORDS PERTAINING TO PATIENTS WHO ARE OR HAVE BEEN ENROLLED IN A CHEMICAL DEPENDENCY/SUBSTANCEABUSE PROGRAM, SOME INFORMATION MAY BE OMITTED. This clinical summary was aggregated from multiple sources. Caution should be exercised in using it in the provision of clinical care. This summary normalizes information from multiple sources, and as a consequence, information in this document may materially change the coding, format and clinical context of patient data. In addition, data may be omitted in some cases. CLINICAL DECISIONS SHOULD BE BASED ON THE PRIMARY CLINICAL RECORDS. [employer] provides no warranty or guarantee of the accuracy or completeness of information in this document.
== END 2025-07-12 15:07 | disposition home or self-care (01) ==
PROVIDERS: Emergency Provider Emergency Medicine; PCP Family Medicine; Visit Provider Emergency Medicine
DX: S93.402A Sprain of unspecified ligament of left ankle, initial encounter (principal); X58.XXXA Exposure to other specified factors, initial encounter
CPT/HCPCS: 73610; 73630; 99283